=== PATIENT | male | born 1945 | race Caucasian/White ===

== ENCOUNTER 2016-04-30 12:31 | Emergency (ER) | payer MEDICARE, OTHER ==
[2016-04-30] MEDS ORDERED: DIPHTH,PERTUSS(ACELL),TET VAC 0.5 ML VIAL IM ONE ×2 (12:47→13:21)
[2016-04-30 12:49] VITALS: BP 125/82
--- OUTSIDE RECORDS SUMMARY | 2016-04-30 13:19 | XMS REPORT | Continuity of Care Document ---
:1945 Author Organization [facility] Address [place] [address] Care Team Providers Name Role Phone Waqar Garcia Primary Care Provider [phone] Source Comments This disclosure is being made pursuant to the [employer] program and maynot contain all information available regarding this patient.[facility] Active Allergies and Adverse Reactions Allergen Noted Date Severity Reactions Comments Daypro 12/29/2015 Low Diarrhea Current Medications Be aware that medications may not be up to date as of this document. Alwaysverify current medications with the patient. Prescription Sig. Disp. Refills Start Date End Date Status VOLTAREN 1 % GEL APPLY 2 grams 2 12/21/2015 Active topically FOUR TIMES DAILY fenofibrate (TRICOR) Take 145 mg by 12/02/2015 Active 145 MG tablet mouth every evening. potassium chloride TAKE 1 CAPSULE BY 12/02/2015 Active (MICRO-K) 10 MEQ CR MOUTH DAILY with capsule breakfast _ pantoprazole TAKE 1 TABLET BY 6 12/21/2015 Active (PROTONIX) 40 MG MOUTH DAILY _ tablet valsartan-hydrochlorot TAKE 1 TABLET BY 12/02/2015 Active hiazide (DIOVAN-HCT) MOUTH DAILY in 320-12.5 MG per tablet the MORNING _ acetaminophen Take 500 mg by Active (TYLENOL) 500 MG mouth every 6 tablet (six) hours as needed for Pain. Naproxen Sodium (ALEVE Take by mouth. Active PO) TONALIN SAFFLOWER OIL Take by mouth. Active CLA 1000 MG CAPS ASPIRIN LOW DOSE PO Take by mouth. Active HYDROcodone-acetaminop Take 1 tablet by 50 tablet 0 01/12/2016 Active hen (NORCO) 7.5-325 MG mouth every 6 per tablet (six) hours as needed for Pain. gabapentin (NEURONTIN) Take 2 capsules 60 capsule 0 01/12/2016 Active 300 MG capsule by mouth nightly. mupirocin (BACTROBAN) Apply thin layer 2 g 0 02/08/2016 Active 2 % nasal ointment to hand incision three times daily and cover with a bandaid x 1 week Active Problems Problem Noted Date Bilateral carpal tunnel syndrome 12/29/2015 Most Recent Encounters Date Type Specialty Providers Description 02/08/2016 Clinical Support Neurosurgery Saurabh Lowe MD S/P carpal tunnel release (Primary Dx) 02/01/2016 Office Visit Neurosurgery Shira Larkin, CASSANDRA Follow-up surgery care (Primary Dx) Social History Tobacco Use Types Packs/Day Years Used Date Never Assessed Last Filed Vital Signs Vital Sign Reading Time Taken Blood Pressure 118/66 02/08/2016 2:35 PM BENDING MACHINE SET UP OPERATOR Pulse 76 01/12/2016 9:07 AM CDT Temperature 36.7 C (98 F) 01/12/2016 9:07 AM CDT Respiratory Rate 16 01/12/2016 9:07 AM CDT Height 1.651 m (5' 5") 02/08/2016 2:35 PM BENDING MACHINE SET UP OPERATOR Weight 79.379 kg (175 lb) 02/08/2016 2:35 PM BENDING MACHINE SET UP OPERATOR Body Mass Index 29.12 02/08/2016 2:35 PM BENDING MACHINE SET UP OPERATOR Oxygen Saturation - - Plan of Care Patient Goal Type Goal Blood Pressure Blood Pressure below 140/90 Health Maintenance Due Date Last Done Comments Hepatitis C Screening 08/23/1965 Tetanus/Pertussis (1 - Tdap) 08/23/1966 Colonoscopy 08/23/1997 Well Adult Visit 08/23/1997 Zoster Vaccine 60+ 2007 Pneumococcal Low/Medium Risk 65+ (1 of 2 - PCV13) 08/23/2012 Influenza Immunization (#1) 2015 Results from Last 3 Months Not on file
--- OUTSIDE RECORDS SUMMARY | 2016-04-30 13:19 | XMS REPORT | Continuity of Care Document ---
:1945 Author Organization [facility] ([facility]) Address [address] [place] [address] Phone [phone] Care Team Providers Name Role Phone Waqar Garcia Primary Care Provider [phone] Source Comments This disclosure is being made pursuant to the Care Everywhere program, applicable federal and state laws, and may not contain all informaitonavailable regarding this patient.[facility] ([facility]) Active Allergies and Adverse Reactions Allergen Noted Date Severity Reactions Comments Oxaprozin 11/05/2015 Diarrhea Current Medications Prescription Sig. Disp. Refills Start Date End Date Status pantoprazole 40 mg EC 1 tablet daily. 6 10/15/2015 Active tablet naproxen sodium (ALEVE) Take 440 mg by mouth Active 220 mg capsule 2 times daily as needed. acetaminophen (TYLENOL Take 1,500 mg by Active EXTRA STRENGTH) 500 mg mouth at bedtime as tablet needed. diclofenac (VOLTAREN) 1 Apply 2 g topically 100 g 2 11/05/2015 Active % topical gel 4 times daily. Active Problems Problem Noted Date Polyarthralgia 11/05/2015 Overview: History of joint pains affecting his hands, low back and his right hip. Currently taking Aleve for his pains. Lab workup showed: negative RF and CORA, ASO 31.6 (N<200), CRP 1.5 (N<4.9) and uric acid 5.7. Midline low back pain without sciatica 11/05/2015 Hypertension 11/05/2015 Overview: Initially on Lisinopril (stopped because of cough), moved to Valsartan, but recently stopped taking it. Hypercholesterolemia 11/05/2015 Overview: Was on Crestor which he recently quit. Before that was on Lipitor which cause him significant muscle pains so he stopped. Generalized osteoarthritis of multiple sites 11/05/2015 Overview: Bilateral hands, shoulders, hips, knees (st.post TKA), likely primary OA. Also affecting his neck and lower back. Social History Tobacco Use Types Packs/Day Years Used Date Former Smoker Smokeless Tobacco: Current User Chew Tobacco Cessation:Ready to Quit: Yes; Counseling Given: Yes Comments: Alcohol Use Drinks/Week oz/Week Comments No former heavy drinker stopped recently Last Filed Vital Signs Vital Sign Reading Time Taken Blood Pressure 158/93 11/05/2015 2:01 PM CDT Pulse 76 11/05/2015 2:01 PM CDT Temperature 35.8 C (96.4 F) 11/05/2015 2:01 PM CDT Respiratory Rate - - Height 1.645 m (5' 4.76") 11/05/2015 2:01 PM CDT Weight 82 kg (180 lb 12.4 oz) 11/05/2015 2:01 PM CDT Body Mass Index 30.3 11/05/2015 2:01 PM CDT Oxygen Saturation - - Plan of Care Health Maintenance Due Date Last Done Comments Hepatitis B Vaccine (1 of 3 - Primary Series) 1945 Tdap Vaccine 08/23/1958 Lipid Disorder Screening 08/23/1965 Td Vaccine 08/23/1965 Colonoscopy 08/23/1997 Prostate Cancer Screening 08/23/1997 Zoster Vaccine 2007 Pneumococcal Vaccine (1 of 2 - PCV13) 08/23/2012 Influenza Vaccine: Seasonal (#1) 10/19/2015 HCV Screening Completed 11/05/2015 Results from Last 3 Months Not on file
[2016-04-30] MEDS ORDERED: AMOX TR/POTASSIUM CLAVULANATE 875 MG TABLET PO ONE (13:36)
[2016-04-30] MEDS ORDERED: HYDROcodone/ACETAMINOPHEN 1 EACH TABLET PO ONE (13:37)
[2016-04-30] MEDS ORDERED: HYDROcodone/ACETAMINOPHEN 1 EACH TABLET ONE (14:04)
[2016-04-30] MEDS ORDERED: AMOX TR/POTASSIUM CLAVULANATE 875 MG TABLET ONE (14:04)
[2016-04-30] MEDS ORDERED: diphenhydrAMINE HCL 25 MG CAPSULE ONE (14:04)
[2016-04-30] MEDS ORDERED: diphenhydrAMINE HCL 25 MG CAPSULE PO ONE (14:05)
--- NOTE | 2016-04-30 14:08 | ERNOTE ---
Upper Extremity HPI - Narrative Date of Service: 04/30/16 - General Extremities Pain Location: 2nd finger: left Time Seen by Provider: 04/30/16 12:42 Source: patient Exam Limitations: no limitations - Immun/Allergies/Home Medications Immunizations: IMMUNIZATION HX Immunizations Up to Date Yes History of Influenza Vaccine Yes Hx Pneumococcal Vaccination Yes Allergies/Adverse Reactions: Allergies Allergy/AdvReac Type Severity Reaction Status Date / Time oxaprozin [From Daypro] Allergy Nausea Verified 04/30/16 12:49 Home Medications: HOME MEDICATIONS Amox Tr/Potassium Clavulanate [Augmentin 875-125 Tablet] 875 mg PO Q12H #20 tab 04/30/16 [Last Taken Unknown] Aspirin 81 mg PO DAILY 04/30/16 [Last Taken Unknown] Hydrocodone/Acetaminophen [Carmine 5-325 Tablet] 1 tab PO Q6H PRN #15 tab [Last Taken Unknown] Losartan/Hydrochlorothiazide [Losartan-Hctz 100-12.5 mg Tab] 1 each PO DAILY 02/03 [Last Taken Unknown] Multivit with Calcium,Iron,Min [One Daily Women's] 1 PO DAILY 04/30/16 [Last Taken Unknown] Pantoprazole Sodium [Protonix] 40 mg PO DAILY 04/30/16 [Last Taken Unknown] Potassium Chloride 10 meq PO DAILY 04/30/16 [Last Taken Unknown] Ubidecarenone/Vit E Acetate [Co Q-10 100 mg Softgel] 2 each PO DAILY 04/30/16 [ Last Taken Unknown] - History of Present Illness Narrative: Patient presents to the ED for a finger injury. This happened this am. He went to his Doctor's office and was sent here. This was a tablesaw injury. He caught the tip of his left index finger in the blase. no other injuries. Not sure about his tetanus status. Left handed. He would like something to go home with for pain. Occurred: just prior to arrival Location of Incident: home Method of Injury: Reports: other - table saw Modifying Factors - (Improves): Reports: rest Modifying Factors - (Worsens): Reports: movement Other Injuries: Reports: none Prior Treament: Reports: treated by physician Review of Systems - Review of Systems Constitutional: Absent: fever Respiratory: Absent: shortness of breath Cardiology: Absent: chest pain - Patient's Past Medical History Patient History - Medical: GERD Patient History - Cardiac/Respiratory: Hypertension, Hyperlipidemia Patient History - Cancer: No Hx of Cancer Patient History - Surgical Procedures: Back Surgery, Total Knee Replacement, Other Patient History - Other: None - Social History Living Situations: significant other Abuse History: No History of abuse Psych History: No pertinent hx Smoking Status: Never smoker Alcohol Use: none Drug Use: none - Immunizations Immunizations Up to Date: Yes Hx Pneumococcal Vaccination: Yes History of Influenza Vaccine: Yes Physical Exam - Physical Exam General Appearance: Present: alert, no apparent distress Eye Exam: Normal inspection: bilateral Neck: Present: normal inspection Respiratory: Present: no respiratory distress Cardiovascular/Chest: Present: regular rate, rhythm Extremity Exam: Present: other - No bone tendernss aside from the distal let index finger. He has lost his nail and there is missing tissue at doc distal nailbed and laceration here. No FB seen. He can still move the finger but pain limits this exam. Distal tip injury with macerated tissue and loss of nail. No other injuries noted. Neurological Exam: Present: other - pain limits exam but no clear motor deficits. Skin Exam: Present: other - see extremity exam ED Progress - Vital Signs Patient's Vital Signs:: I have reviewed the patient's vital signs. Vital Signs: Vital Signs 04/30/16 04/30/16 12:39 13:06 Temperature 35.7 C L Pulse Rate 86 81 Respiratory 16 18 Rate Blood Pressure 125/82 125/82 O2 Sat by Pulse 96 97 Oximetry - X-Ray X-Ray #1 X-Ray: finger Interpretation: Reviewed by me X-ray Comments: I reviewed the radiology report. - Progress/Reassessment Chief Complaint: Hand Injury/Pain Progress Note-Subjective: 04/30/16 14:03 I spoke with ortho gluing machine operator electronic Edilberto Sahu, I disucssed the injury and the x-ray findings. He requests bandaging, antibiotics and Monday office follow-up for management. I discussed this with the patient and he is agreeable. i discussed warning signs and reasons to return as well as the need for close f/u. Departure Clinical Impression: Fingernail avulsion, Injury of finger of left hand - Departure Disposition: Home self-care Condition: Stable Instructions: Laceration Care, Adult, [id number] Additional Instructions: I have spoken with Orthopedics, Tan Sahu. He wants you to call the office Monday morning for an appointment time. Keep the area bandaged and you will have antibiotics to take for now. No driving with pain medications. Return here for signs of infection, fever or if your condition worsens or changes in any way. Referrals: Waqar Garcia DO [Primary Care Provider] - Prescriptions: Amox Tr/Potassium Clavulanate [Augmentin 875-125 Tablet] 875 mg PO Q12H #20 tab Hydrocodone/Acetaminophen [Carmine 5-325 Tablet] 1 tab PO Q6H PRN #15 tab PRN Reason: Pain
== END 2016-04-30 14:15 | disposition home or self-care (01) ==
LOC: ER 12:31
DX: S61.301A Unspecified open wound of left index finger with damage to nail, initial encounter (principal); S69.92XA Unspecified injury of left wrist, hand and finger(s), initial encounter; W27.0XXA Contact with workbench tool, initial encounter; Y92.009 Unspecified place in unspecified non-institutional (private) residence as the place of occurrence of the external cause; I10 Essential (primary) hypertension; K21.9 Gastro-esophageal reflux disease without esophagitis; Z23 Encounter for immunization